=== PATIENT | male | born 1955 | race Caucasian/White ===

== ENCOUNTER 2022-05-21 10:31 | Outpatient (CLI) | payer MEDICARE | END 2022-05-21 10:32 | disposition home or self-care (01) | LOC: CSHMRI 10:31 | PROVIDERS: ATTEND Specialist | DX: M54.16 Radiculopathy, lumbar region (principal); M47.816 Spondylosis without myelopathy or radiculopathy, lumbar region | CPT/HCPCS: 72148 ==

== ENCOUNTER 2023-11-30 15:04 | Outpatient (CLI) | payer MEDICARE | END 2023-11-30 15:05 | disposition home or self-care (01) | LOC: CSHMRI 15:04 | PROVIDERS: ATTEND Nurse Practitioner Family | DX: M47.26 Other spondylosis with radiculopathy, lumbar region (principal); M48.061 Spinal stenosis, lumbar region without neurogenic claudication; Q76.49 Other congenital malformations of spine, not associated with scoliosis; E88.2 Lipomatosis, not elsewhere classified | CPT/HCPCS: 72148 ==